=== PATIENT | male | born 1995 | race Caucasian/White ===

== ENCOUNTER → 2018-02-20 | Outpatient (REF) ==
[~2018-02-20] MED LIST: CODE-54 PO
--- NOTE | 2018-02-20 15:42 | Diagnostic Imaging Report ---
INDICATION: Pain in the right arm. TIME OF EXAM: 3:59 PM FINDINGS: Two views of the right forearm were obtained. The alignment at the elbow and wrist appears normal. The radius and ulna are intact. No fractures are seen. IMPRESSION: No acute bony abnormality is detected. Dictated by: Dictated on workstation # [id number]
== END | disposition home or self-care (01) ==
LOC: OCC 15:18
PROVIDERS: ATTEND Nurse Practitioner Family
CPT/HCPCS: 73090

== ENCOUNTER 2018-05-22 07:37 | Emergency (ER) | payer SELFPAY ==
[~2018-05-22] VITALS: Ht 185.4 cm; Wt 102.1 kg
--- OUTSIDE RECORDS SUMMARY | 2018-05-22 07:41 | XMS REPORT ---
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
[2018-05-22] MEDS ORDERED: FAMOTIDINE 20 MG (PEPCID) TABLET PO STA (07:51)
--- NOTE | 2018-05-22 07:57 | ED Chest Pain ---
General Chief Complaint: Abdominal/GI Problems Stated Complaint: CHEST PAIN;SOB Nursing Triage Note: ARRIVED VIA AMB TO ROOM 04. STATES HE WAS WOKE UP AT 3AM WITH EPIGASTRIC PAIN THAT WENT UP THE MID CHEST. STATES IT ALSO HURTS TO BREATHE. Nursing Sepsis Screen: No Definite Risk Source: patient Exam Limitations: no limitations History of Present Illness Date Seen by Provider: May 22, 2018 Time Seen by Provider: 07:43 Initial Comments Patient presents to ER by private conveyance with his grandmother and chief complaint of one night of since 3:00 in the morning being woke up with some burning sensation pain that travels from his mid epigastrium up through the center of his chest is worse with deep inspiration. Now he started to have some coughing that is nonproductive with it. No fevers chills nausea vomiting constipation. He says he has loose stool every morning for the past several years but has never been diagnosed with ureteral bowel syndrome or inflammatory bowel disease. Does not follow with primary care doctor. Took some water for this morning but does not have any antacids or anything to try. No history of coronary disease. No history of family little early onset coronary disease or sudden cardiac syndrome. No other medical history. Does not take any routine medicines. About a week ago he did have a fever and took some NyQuil times one and it went away and never came back. Allergies and Home Medications Allergies Coded Allergies: No Known Drug Allergies (Unverified , 12/16/11) Home Medications No Active Prescriptions or Reported Meds Patient Home Medication List Home Medication List Reviewed: Yes Review of Systems Review of Systems Constitutional: No chills, No diaphoresis; weight gain; No weight loss EENTM: No Blurred Vision, No Double Vision Respiratory: Cough; Denies Shortness of Air, Denies Stridor, Denies Wheezing Cardiovascular: See HPI, Chest Pain; Denies Edema, Denies Lightheadedness Gastrointestinal: Denies Abdomen Distended, Denies Abdominal Pain, Denies Constipated, Denies Diarrhea, Denies Nausea, Denies Poor Fluid Intake Genitourinary: Denies Burning, Denies Discharge Past Pshzhav-Sgduyw-Asevbs Hx Patient Social History Alcohol Use: Occasionally Uses Recreational Drug Use: Yes Drug of Choice: POT Smoking Status: Never a Smoker Type Used: Smokeless Tobacco Recent Foreign Travel: No Contact w/Someone Who Travel: No Recent Infectious Disease Expo: No Recent Hopitalizations: No Past Medical History Surgeries: No Respiratory: No Cardiac: No Neurological: No Genitourinary: No Gastrointestinal: No Musculoskeletal: No Endocrine: No HEENT: No Cancer: No Did You Recieve Any Treatments: No Psychosocial: No Integumentary: No Physical Exam Vital Signs Vital Signs - First Documented 05/22/18 07:40 Temp 98.0 Pulse 85 Resp 16 B/P (MAP) 154/67 (96) Pulse Ox 98 O2 Delivery Room Air Capillary Refill : Less Than 3 Seconds Height, Weight, BMI Height: 6'1.00" Weight: 225lbs. oz. 102.707164te; BMI Method:Estimated General Appearance: No Apparent Distress, WD/WN HEENT: PERRL/EOMI, Pharynx Normal, Moist Mucous Membranes Respiratory: No Chest Non Tender (palpation over the manubrium reproduces his chest symptoms); Lungs Clear, Normal Breath Sounds, No Accessory Muscle Use, No Respiratory Distress Cardiovascular: Regular Rate, Rhythm, No Edema, Normal Peripheral Pulses Gastrointestinal: Normal Bowel Sounds, Non Tender, Soft Extremity: Normal Capillary Refill, No Pedal Edema Neurologic/Psychiatric: Alert, Oriented x3 Progress/Results/Core Measures Results/Orders Lab Results Laboratory Tests Test 05/22/18 08:20 Range/Units White Blood Count 9.0 4.3-11.0 10^3/uL Red Blood Count 5.05 4.35-5.85 10^6/uL Hemoglobin 15.2 13.3-17.7 G/DL Hematocrit 43 40-54 % Mean Corpuscular Volume 84 80-99 FL Mean Corpuscular Hemoglobin 30 25-34 PG Mean Corpuscular Hemoglobin Concent 36 32-36 G/DL Red Cell Distribution Width 12.6 10.0-14.5 % Platelet Count 253 130-400 10^3/uL Mean Platelet Volume 10.1 7.4-10.4 FL Neutrophils (%) (Auto) 72 42-75 % Lymphocytes (%) (Auto) 18 12-44 % Monocytes (%) (Auto) 9 0-12 % Eosinophils (%) (Auto) 1 0-10 % Basophils (%) (Auto) 0 0-10 % Neutrophils # (Auto) 6.5 1.8-7.8 X 10^3 Lymphocytes # (Auto) 1.6 1.0-4.0 X 10^3 Monocytes # (Auto) 0.8 0.0-1.0 X 10^3 Eosinophils # (Auto) 0.1 0.0-0.3 10^3/uL Basophils # (Auto) 0.0 0.0-0.1 10^3/uL Sodium Level 141 135-145 MMOL/L Potassium Level 4.2 3.6-5.0 MMOL/L Chloride Level 109 H 98-107 MMOL/L Carbon Dioxide Level 21 21-32 MMOL/L Anion Gap 11 5-14 MMOL/L Blood Urea Nitrogen 8 7-18 MG/DL Creatinine 0.79 0.60-1.30 MG/DL Estimat Glomerular Filtration Rate > 60 BUN/Creatinine Ratio 10 Glucose Level 107 H 70-105 MG/DL Calcium Level 9.2 8.5-10.1 MG/DL Corrected Calcium 8.8 8.5-10.1 MG/DL Total Bilirubin 0.5 0.1-1.0 MG/DL Aspartate Amino Transf (AST/SGOT) 37 H 5-34 U/L Alanine Aminotransferase (ALT/SGPT) 94 H 0-55 U/L Alkaline Phosphatase 63 40-136 U/L Troponin I < 0.30 <0.30 NG/ML C-Reactive Protein High Sensitivity 0.21 0.00-0.50 MG/DL Total Protein 7.5 6.4-8.2 GM/DL Albumin 4.5 3.2-4.5 GM/DL My Orders Orders - KARSTEN WOLF Lidocaine 2% Viscous 15 Ml (Xylocaine Vi (05/22/18 08:00) Famotidine Tablet (Pepcid Tablet) (05/22/18 07:51) Antacid Suspension (Mylanta Suspension (05/22/18 08:00) Cbc With Automated Diff (05/22/18 08:11) Comprehensive Metabolic Panel (05/22/18 08:11) Hs C Reactive Protein (05/22/18 08:11) Troponin I (05/22/18 08:11) Chest Pa/Lat (2 View) (05/22/18 08:11) Ekg Tracing (05/22/18 08:11) Ketorolac Injection (Toradol Injection) (05/22/18 08:15) Medications Given in ED Current Medications Medications Dose Ordered Sig/Dex Route Start Time Stop Time Status Last Admin Dose Admin Al Hydrox/Mg Hydrox/Simethicone 30 ml ONCE ONCE PO 05/22/18 08:00 05/22/18 08:01 DC 05/22/18 08:01 30 ML Ketorolac Tromethamine 30 mg ONCE ONCE IM 05/22/18 08:15 05/22/18 08:16 DC 05/22/18 08:38 30 MG Lidocaine HCl 15 ml ONCE ONCE PO 05/22/18 08:00 05/22/18 08:01 DC 05/22/18 08:01 15 ML Vital Signs/I&O 05/22/18 07:40 Temp 98.0 Pulse 85 Resp 16 B/P (MAP) 154/67 (96) Pulse Ox 98 O2 Delivery Room Air Blood Pressure Mean: 96 Progress Progress Note #1: Time: 07:56 Progress Note Chest wall tenderness to palpation as well as a history that sounds more like GERD. To help us differentiate we'll start with a GI cocktail and some Pepcid. If this relieves his symptoms then we will set him down a path to workup outpatient if not beginning about pleuritic chest pain versus costochondritis and trial NSAIDs. No real heart history to speak of. No reason to suspect her risk factors for pulmonary embolisms. Not having a productive cough his cough did not start till after the chest pain which sounds more like GERD and pneumonia or bronchitis. His vitals are benign today. Progress Note #2: Time: 08:13 Progress Note Patient says he can feel the effects of the GI cocktail but he still having the pain in the same spot and it did not get alleviated by the GI cocktail. Chest wall, pleuritic possible pericarditis or stone the differential. We'll get some basic labs to include a CRP, EKG and troponin. Toradol for his discomfort. Progress Note #3: Time: 10:47 Progress Note Chest wall pain improved some but persists despite Toradol. His vital signs are still nonacute. We have offered him outpatient follow-up with cardiology versus primary care. He is known to Dr. Berger in the past. He says he'll follow up there. We are going to encourage NSAIDs, topicals, heat and strict return precautions. Initial ECG Impression Date: May 22, 2018 Initial ECG Impression Time: 08:24 Initial ECG Rate: 86 Initial ECG Rhythm: Normal Sinus Initial ECG Intervals: Normal Initial ECG Impression: Normal Initial ECG Comparisson: No Previous ECG Available Comment No ST elevation or depression. Diagnostic Imaging Diagonstic Imaging: Xray Plain Films/CT/US/NM/MRI: chest (1v) Comments NAME: OMEGA ALVES [facility] REC#: [id number] PHYSICIAN: KARSTEN WOLF MD CC: YANN LANG DO; KARSTEN WOLF Page 1 of 1 RADIOLOGY REPORT [facility] [place], [place] CC: YANN LANG DO; KARSTEN WOLF Page 1 of 1 RADIOLOGY REPORT NAME: OMEGA ALVES [facility] REC#: [id number] PT STATUS: REG ER : 1995 PHYSICIAN: KARSTEN WOLF MD ADMIT DATE: 05/22/18/ER Signed Date of Exam: 05/22/18 CHEST PA/LAT (2 VIEW) INDICATION: Difficulty breathing, cough with deep inspiration. Unable to sleep. TECHNIQUE: Two view chest 9:29 AM CORRELATION STUDY: None FINDINGS: The heart size, mediastinal configuration and pulmonary vasculature are within normal limits. The lungs are clear with no consolidating infiltrate. There is no significant pleural effusion or pneumothorax. Slight asymmetric elevated right diaphragm. Visualized osseous structures are unremarkable. IMPRESSION: 1. No radiographic evidence for acute abnormality of the chest. Dictated by: Dictated on workstation # [id number] Dict: 05/22/18937 Trans: 05/22/18938 Interpreted by: YANN LANG DO Electronically signed by: YANN LANG DO 05/22/18938 Reviewed: Reviewed by Me Departure Impression Primary Impression: Anterior chest wall pain Disposition: 01 HOME, SELF-CARE Condition: Stable Departure-Patient Inst. Decision time for Depature: 10:49 Referrals: SASCHA BERGER MD (PCP) Primary Care Physician Patient Instructions: Costochondritis (DC) Add. Discharge Instructions: Naprosyn 2 capsules twice a day for the next 2 weeks. If you're pain becomes intolerable or is accompanied with other symptoms then you should return to the ER for further evaluation. Plan to follow up in about 1-2 weeks with primary care for reevaluation. All discharge instructions reviewed with patient and/or family. Voiced understanding. Scripts No Active Prescriptions or Reported Meds Copy Copies To 1: SASCHA BERGER MD, TITUS J May 22, 2018 07:57
[2018-05-22] MEDS ORDERED: ANTACID SUSP 30 ML UDC (MYLANTA) PO ONE (08:00)
[2018-05-22] MEDS ORDERED: LIDOCAINE 2% VISCOUS 15 ML UDC PO ONE (08:00)
[2018-05-22] MEDS ORDERED: KETOROLAC 30 MG/ML VIAL IM ONE (08:15)
[2018-05-22 08:37] LABS: BASOPHILS % (AUTO) 0 % (0-10); EOSINOPHILS # (AUTO) 0.1 10^3/uL (0.0-0.3); EOSINOPHILS % (AUTO) 1 % (0-10); HEMATOCRIT 43 % (40-54); HEMOGLOBIN 15.2 G/DL (13.3-17.7); LYMPHOCYTES # (AUTO) 1.6 X 10^3 (1.0-4.0); LYMPHOCYTES % (AUTO) 18 % (12-44); MEAN CORPUSCULAR HEMOGLOBIN 30 PG (25-34); MEAN CORPUSCULAR HGB CONC 36 G/DL (32-36); MEAN CORPUSCULAR VOLUME 84 FL (80-99); MEAN PLATELET VOLUME 10.1 FL (7.4-10.4); MONOCYTES # (AUTO) 0.8 X 10^3 (0.0-1.0); MONOCYTES % (AUTO) 9 % (0-12); NEUTROPHILS # (AUTO) 6.5 X 10^3 (1.8-7.8); NEUTROPHILS % (AUTO) 72 % (42-75); PLATELET COUNT 253 10^3/uL (130-400); RED BLOOD COUNT 5.05 10^6/uL (4.35-5.85); RED CELL DISTRIBUTION WIDTH 12.6 % (10.0-14.5)
[2018-05-22 08:55] LABS: ALANINE AMINOTRANSFERASE 94 U/L (0-55); ALBUMIN 4.5 GM/DL (3.2-4.5); ALKALINE PHOSPHATASE 63 U/L (40-136); BILIRUBIN,TOTAL 0.5 MG/DL (0.1-1.0); BUN/CREATININE RATIO 10; CALCIUM 9.2 MG/DL (8.5-10.1); CARBON DIOXIDE 21 MMOL/L (21-32); CHLORIDE 109 MMOL/L (98-107); CREATININE SERUM 0.79 MG/DL (0.60-1.30); GFR ESTIMATED > 60; GLUCOSE 107 MG/DL (70-105); POTASSIUM 4.2 MMOL/L (3.6-5.0); SODIUM 141 MMOL/L (135-145); TOTAL PROTEIN 7.5 GM/DL (6.4-8.2)
--- NOTE | 2018-05-22 09:42 | Diagnostic Imaging Report ---
INDICATION: Difficulty breathing, cough with deep inspiration. Unable to sleep. TECHNIQUE: Two view chest 9:29 AM CORRELATION STUDY: None FINDINGS: The heart size, mediastinal configuration and pulmonary vasculature are within normal limits. The lungs are clear with no consolidating infiltrate. There is no significant pleural effusion or pneumothorax. Slight asymmetric elevated right diaphragm. Visualized osseous structures are unremarkable. IMPRESSION: 1. No radiographic evidence for acute abnormality of the chest. Dictated by: Dictated on workstation # [id number]
[2018-05-22 11:03] VITALS: BP 136/89
== END 2018-05-22 11:03 | disposition home or self-care (01) ==
LOC: EDUNIT# 07:37 → ER 07:38
DX: R07.89 Other chest pain (principal); F12.10 Cannabis abuse, uncomplicated
CPT/HCPCS: 36415; 71046; 80053; 84484; 85025; 86141; 93005